=== PATIENT | female | born 1990 | race Two or more races ===

== ENCOUNTER 2023-01-20 09:30 | Outpatient (CLI) | payer OTHER | END 2023-01-20 09:35 | disposition home or self-care (01) | LOC: PRENATAL 09:30 | PROVIDERS: ATTEND Obstetrics & Gynecology Maternal & Fetal Medicine | DX: O35.3XX0 Maternal care for (suspected) damage to fetus from viral disease in mother, not applicable or unspecified (principal); O44.00 Complete placenta previa NOS or without hemorrhage, unspecified trimester; O28.1 Abnormal biochemical finding on antenatal screening of mother; Z3A.19 19 weeks gestation of pregnancy ==